=== PATIENT | male | born 1965 | race Caucasian/White ===

== ENCOUNTER 2019-09-11 20:13 | Emergency (ER) | payer BC ==
[~2019-09-11] VITALS: Ht 185.4 cm; Wt 100.0 kg
[2019-09-11 20:44] VITALS: TEMP 98.6
[2019-09-11] MEDS ORDERED: PRINIVIL10 MG PO (21:03)
[2019-09-11] MEDS ORDERED: TENORMIN 2525 MG/TAB PO (21:04)
[2019-09-11 21:40] VITALS: BP 128/78; PULSE 72
== END 2019-09-11 21:40 | disposition home or self-care (01) ==
LOC: COL.ER 20:13
DX: T15.01XA Foreign body in cornea, right eye, initial encounter (principal); I10 Essential (primary) hypertension; X58.XXXA Exposure to other specified factors, initial encounter